=== PATIENT | male | born 1940 | race Caucasian/White ===

== ENCOUNTER 2018-05-22 15:57 | Emergency (ER) | payer MEDICARE, OTHER ==
[2018-05-22] MEDS ORDERED: Triple Antibiotic Oint 1 GM Packet ONE (16:15)
== END 2018-05-22 17:07 | disposition home or self-care (01) ==
LOC: NAV ERS 15:57
DX: S40.811A Abrasion of right upper arm, initial encounter (principal); I10 Essential (primary) hypertension; Z79.01 Long term (current) use of anticoagulants; W01.0XXA Fall on same level from slipping, tripping and stumbling without subsequent striking against object, initial encounter
CPT/HCPCS: 99283